=== PATIENT | male | born 1995 | race Caucasian/White ===

== ENCOUNTER 2018-10-03 09:29 | Emergency (ER) | payer OTHER ==
[2018-10-03 09:48] VITALS: BP 122/68
[2018-10-03] MEDS ORDERED: Tenofovir/Emtricitab 200/300 * TAB PO ONE ×2 (10:06→10:51)
[2018-10-03] MEDS ORDERED: Raltegravir* 400 MG TAB PO ONE ×2 (10:07→10:52)
--- NOTE | 2018-10-03 10:14 | UC ---
UC General HPI - HPI Summary HPI Summary: 23-year-old male comes in with a chief complaint of exposure to HIV. Patient reports that last evening he had anal intercourse with a person with known HIV. The were Using a condom but then the condom broke. No prior history of HIV or hepatitis. Denies any history of kidney problems or liver problems. - History of Current Complaint Chief Complaint: UCSTDScreening Stated Complaint: PERSONAL Time Seen by Provider: 10/03/18 09:43 Pain Intensity: 0 - Allergy/Home Medications Allergies/Adverse Reactions: Allergies Allergy/AdvReac Type Severity Reaction Status Date / Time No Known Allergies Allergy Verified 10/03/18 09:48 PMH/Surg Hx/FS Hx/Imm Hx Previously Healthy: Yes - Surgical History Surgical History: None - Family History Known Family History: Positive: Non-Contributory - Social History Alcohol Use: None Substance Use Type: None Smoking Status (MU): Light Every Day Tobacco Smoker Review of Systems All Other Systems Reviewed And Are Negative: Yes Constitutional: Positive: Negative Skin: Positive: Negative Eyes: Positive: Negative ENT: Positive: Negative Respiratory: Positive: Negative Cardiovascular: Positive: Negative Gastrointestinal: Positive: Negative Genitourinary: Positive: Negative Motor: Positive: Negative Neurovascular: Positive: Negative Musculoskeletal: Positive: Negative Neurological: Positive: Negative Psychological: Positive: Negative Is Patient Immunocompromised?: No Physical Exam Triage Information Reviewed: Yes Appearance: Well-Appearing, No Pain Distress, Well-Nourished Vital Signs: Initial Vital Signs Temp 98.4 F 10/03/18 09:44 Pulse 92 10/03/18 09:44 Resp 16 10/03/18 09:44 BP 122/68 10/03/18 09:44 Pulse Ox 100 10/03/18 09:44 Vital Signs Reviewed: Yes Eye Exam: Normal Eyes: Positive: Conjunctiva Clear Neck: Positive: Supple Respiratory: Positive: Lungs clear, Normal breath sounds, No respiratory distress Cardiovascular: Positive: RRR Abdomen Description: Positive: Nontender, Soft Musculoskeletal Exam: Normal Musculoskeletal: Positive: Strength Intact, ROM Intact Neurological Exam: Normal Neurological: Positive: Alert, Muscle Tone Normal Psychological Exam: Normal Psychological: Positive: Age Appropriate Behavior Skin Exam: Normal Course/Dx - Course Course Of Treatment: I counseled the patient for HIV testing and the patient wishes to have HIV testing. I counseled the patient for post exposure prophylaxis for HIV and the patient wishes to receive the post exposure prophylaxis for HIV. I explained to him the follow-up with infectious disease. CBC CMP rapid HIV and hepatitis B antibody and antigen and hepatitis C antibody blood work obtained. Patient given 7 days of Truvada and Raltegravir here in clinic and given prescriptions for 23 more days of both medications. - Diagnoses Provider Diagnosis: Contact with and (suspected) exposure to human immunodeficiency virus [hiv] Discharge - Sign-Out/Discharge Documenting (check all that apply): Patient Departure All imaging exams completed and their final reports reviewed: No Studies - Discharge Plan Condition: Stable Disposition: HOME Prescriptions: Raltegravir* [Isentress*] 400 mg PO BID #46 tab Tenofovir/Emtricitab 200/300 * [Truvada 200/300 mg*] 1 tab PO DAILY #23 tab Patient Education Materials: Postexposure Prophylaxis (ED) Referrals: Alecia Calle [Primary Care Provider] - [address],Chad Gaston [Medical Doctor] - Additional Instructions: FOLLOW UP WITH INFECTIOUS DISEASE, DR COSTELLO. TAKE THE MEDICATION DIRECTED. GET RECHECKED SOONER IF YOUR CONDITION WORSENS OR ANY QUESTIONS OR CONCERNS. - Billing Disposition and Condition Condition: STABLE Disposition: Home
[2018-10-03 14:14] LABS: ABS Basophils 0.1 10^3/ul (0-0.2); ABS Eosinophils 0.1 10^3/ul (0-0.6); ABS Lymphocytes 2.1 10^3/ul (1.0-4.8); ABS Monocytes 0.6 10^3/ul (0-0.8); ABS Neutrophils 4.4 10^3/ul (1.5-7.7); Eosinophil % 1.4 %; Hematocrit 48 % (42-52); Hemoglobin 16.4 g/dL (14.0-18.0); Lymphocyte % 29.4 %; Mean Corpuscular HGB Conc 34 g/dL (31-36); Mean Corpuscular Hemoglobin 32 pg (27-31); Mean Corpuscular Volume 93 fL (80-94); Mean Platelet Volume 8.2 fL (7.4-10.4); Nucleated Red Blood Cells % 0.1; Platelet Count 264 10^3/uL (150-450); Red Blood Count 5.19 10^6 /uL (4.18-5.48); Red Cell Distribution Width 13 % (10-15); White Blood Count 7.3 10^3/uL (3.5-10.8)
[2018-10-03 14:29] LABS: Albumin 4.7 g/dL (3.2-5.2); Calcium 9.8 mg/dL (8.6-10.3); Potassium 3.9 mmol/L (3.5-5.0); Total Bilirubin 0.5 mg/dL (0.2-1.0)
[2018-10-03 14:35] LABS: Albumin/Globulin Ratio 1.7 (1-3); BUN/Creatinine Ratio 17.4 (8-20); EGFR African American 122.3 (>60); EGFR Non-African American 101.1 (>60); Globulin 2.7 g/dL (2-4); Total Protein 7.4 g/dL (6.4-8.9)
[2018-10-03 15:08] LABS: Hepatitis B Surface Antigen Negative (Negative)
[2018-10-03 15:17] LABS: HIV 4th Generation Negative (Negative)
[2018-10-03 15:25] LABS: Hepatitis B Surface Ab Not Immune (Immune); Hepatitis C Antibody Negative (Negative)
--- NOTE | 2018-10-04 07:32 | UC ---
- Progress Note Progress Note: You can notify pt of results He is not Hep B immune and this can be discussed with MD at follow up Course/Dx - Diagnoses Provider Diagnoses: Contact with and (suspected) exposure to human immunodeficiency virus [hiv] Discharge - Sign-Out/Discharge Documenting (check all that apply): Post-Discharge Follow Up All imaging exams completed and their final reports reviewed: No Studies - Discharge Plan Condition: Stable Disposition: HOME Prescriptions: Raltegravir* [Isentress*] 400 mg PO BID #46 tab Tenofovir/Emtricitab 200/300 * [Truvada 200/300 mg*] 1 tab PO DAILY #23 tab Patient Education Materials: Postexposure Prophylaxis (ED) Referrals: [address],Chad Gaston [Medical Doctor] - Alecia Calle [Primary Care Provider] - Additional Instructions: FOLLOW UP WITH INFECTIOUS DISEASE, DR COSTELLO. TAKE THE MEDICATION DIRECTED. GET RECHECKED SOONER IF YOUR CONDITION WORSENS OR ANY QUESTIONS OR CONCERNS. - Billing Disposition and Condition Condition: STABLE Disposition: Home
== END 2018-10-03 11:48 | disposition home or self-care (01) ==
LOC: UCCORT 09:29
DX: Z20.6 Contact with and (suspected) exposure to human immunodeficiency virus [HIV] (principal); F17.200 Nicotine dependence, unspecified, uncomplicated
CPT/HCPCS: 36415; 80053; 85025; 86706; 86803; 87340; 87389; 99213; G0463

== ENCOUNTER 2019-07-23 12:42 | Emergency (ER) | payer OTHER ==
--- NOTE | 2019-07-23 13:49 | UC ---
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 He's had flulike symptoms over the past couple of days. He has had no known exposure to any Covid positive patient's however he states the prison does not tests the patients, and he recently took care of a prison resident who had flulike symptoms. - History of Current Complaint Chief Complaint: UCRespiratory Stated Complaint: FEVER/COUGH/CHESTPAIN Time Seen by Provider: 07/23/19 13:47 Hx Obtained From: Patient Onset/Duration: Gradual Onset, Lasting Days, Still Present Severity Currently: Mild Severity Initially: Mild Associated Signs & Symptoms: Positive: Myalgia, Cough, Nasal Congestion Related Hx: Possible Flu/Infectious Exposure - Allergy/Home Medications Allergies/Adverse Reactions: Allergies Allergy/AdvReac Type Severity Reaction Status Date / Time No Known Allergies Allergy Verified 07/23/19 13:20 Home Medications: Home Medications Tenofovir/Emtricitab 200/300 * [Truvada 200/300 mg*] 1 tab PO DAILY #23 tab 12/14 [Rx Confirmed 07/23/19] Amoxicillin PO (*) [Amoxicillin 875 MG (*)] 875 mg PO BID 10 Days #20 tab [Rx] PMH/Surg Hx/FS Hx/Imm Hx Previously Healthy: Yes Endocrine History: Thyroid Disease - Surgical History Surgical History: None - Family History Known Family History: Positive: Unknown, Non-Contributory - Social History Occupation: Employed Full-time Lives: With Family Alcohol Use: None Substance Use Type: None Smoking Status (MU): Former Smoker When Did the Patient Quit Smoking/Using Tobacco: 06/2019 Review of Systems All Other Systems Reviewed And Are Negative: Yes ENT: Positive: Sore Throat - Patient denies a sore throat., Nasal Discharge Respiratory: Positive: Cough - Patient denies any cough., Other - Patient states occasionally he will feel "winded" but denies shortness of breath. Gastrointestinal: Positive: Nausea Musculoskeletal: Positive: Myalgia Is Patient Immunocompromised?: No Physical Exam Triage Information Reviewed: Yes Appearance: Well-Appearing, No Pain Distress, Well-Nourished Vital Signs Reviewed: Yes Eyes: Positive: Conjunctiva Clear ENT: Positive: Pharyngeal erythema - Very mild tonsillar erythema., TMs normal, Uvula midline Neck: Positive: Supple, Nontender, No Lymphadenopathy Respiratory: Positive: Lungs clear, Normal breath sounds, No respiratory distress, No accessory muscle use Cardiovascular: Positive: RRR, No Murmur, Pulses Normal, Brisk Capillary Refill Abdomen Description: Positive: Nontender - Very minimal tenderness over the umbilicus, no rigidity, rebound or guarding., No Organomegaly, Soft. Negative: CVA Tenderness (R), CVA Tenderness (L), Distended, Guarding, Hepatomegaly, McBurney's Point Tenderness, Splenomegaly Bowel Sounds: Positive: Present Musculoskeletal Exam: Normal Neurological Exam: Normal Psychological Exam: Normal Skin Exam: Normal Flu Course/Dx - Course Course Of Treatment: Rapid flu test: Negative Rapid strep test: Positive Covid-19 test: Obtained Patient is comfortable here and in no distress. I did give him off work until he receives his Covid 19 test results. - Differential Dx/Diagnosis Provider Diagnosis: Strep pharyngitis Discharge ED - Sign-Out/Discharge Documenting (check all that apply): Patient Departure All imaging exams completed and their final reports reviewed: No Studies - Discharge Plan Condition: Good Disposition: HOME Prescriptions: Amoxicillin PO (*) [Amoxicillin 875 MG (*)] 875 mg PO BID 10 Days #20 tab Patient Education Materials: Strep Throat (DC) Forms: COVID-19 Tested & Isolation, *Work Release Referrals: Sp Wright MD [Primary Care Provider] - Additional Instructions: Change your toothbrush in 24 hours, warm saltwater gargles, throat lozenges. May take Tylenol every 4 hours and ibuprofen every 8 hours as needed for pain or fever. Follow the Covid 19 guidelines for self-isolation at home until you receive the test results. - Billing Disposition and Condition Condition: GOOD Disposition: Home
[2019-07-23 14:04] VITALS: BP 120/77
[2019-07-23 14:18] LABS: Influenza A Molecular Negative (Negative); Influenza B Molecular Negative (Negative)
--- NOTE | 2019-07-27 10:54 | UC ---
- Progress Note Progress Note: please call pt - neg COVID Course/Dx - Diagnoses Provider Diagnoses: Strep pharyngitis Discharge ED - Sign-Out/Discharge Documenting (check all that apply): Post-Discharge Follow Up All imaging exams completed and their final reports reviewed: No Studies - Discharge Plan Condition: Good Disposition: HOME Prescriptions: Amoxicillin PO (*) [Amoxicillin 875 MG (*)] 875 mg PO BID 10 Days #20 tab Patient Education Materials: Strep Throat (DC) Forms: COVID-19 Tested & Isolation, *Work Release Referrals: Sp Wright MD [Primary Care Provider] - Additional Instructions: Change your toothbrush in 24 hours, warm saltwater gargles, throat lozenges. May take Tylenol every 4 hours and ibuprofen every 8 hours as needed for pain or fever. Follow the Covid 19 guidelines for self-isolation at home until you receive the test results. - Billing Disposition and Condition Condition: GOOD Disposition: Home
== END 2019-07-23 14:53 | disposition home or self-care (01) ==
LOC: UCCORT 12:42
DX: J02.0 Streptococcal pharyngitis (principal); M79.10 Myalgia, unspecified site; R05 Cough; R09.81 Nasal congestion; Z20.828 Contact with and (suspected) exposure to other viral communicable diseases; Z87.891 Personal history of nicotine dependence
CPT/HCPCS: 87635; 87651; 99212; G0463